=== PATIENT | male | born 1995 | race African-American/Black ===

== ENCOUNTER 2025-02-02 15:55 | Emergency (ER) | payer SELFPAY ==
[2025-02-02 16:09] VITALS: BP 125/76
[2025-02-02] MEDS: MOTRIN 400 MG PO (17:00)
--- NOTE | 2025-02-02 17:01 | ED.GENMED ---
History of Present Illness
General
Chief Complaint: Musculo-Skeletal Complaint
Source: patient
Exam Limitations: none
Time Seen by Provider: 02/02/25 16:17
Nursing documentation reviewed up to this point in time: agreed with
History of Present Illness
History of Present Illness:
Patient is a 29-year-old male presenting to the emergency department for evaluation of left hand injury. This occurred earlier his afternoon just prior to arrival. Patient states he works at a [employer] center and was assisting in
detaining one of the kids when his hand became jammed against the wall/door. Patient presents with swelling and pain to left hand. He denies any numbness/tingling in left hand/fingers. He denies any significant limitations in range of motion.
Patient does have mild abrasion to dorsal aspect of left hand at base of left 3rd/4th digits which he states is from scratching the door/wall. He denies any bite to the area.
Patient denies any other associated injuries. No head strike.
No other concerns today.
Past History
Past History
ED Past Medical History: None
Social History
Tobacco: Non-smoker
Personal: Single
Living: with roommate
Employment: Student
Review of Systems
Review of Systems
Allergies reviewed?: Yes
All Other Systems: ROS reviewed and negative except as documented in HPI and ROS
Phy Exam
Physical Exam
Physical Exam:
Vitals: Patient's vital signs are stable. Afebrile
General: Patient is well appearing, no acute distress
Skin: Very mild abrasion noted to dorsal aspect of left hand at MCP joints of 3rd/4th fingers. Warm and dry, no rashes or lesions
Head: Normocephalic, atraumatic
Throat: Protecting airway
Neck: Normal ROM, no cervical spine tenderness
Cardiac: Regular rate
Pulm: No apparent respiratory distress
Abdomen: Nondistended
Extremities: Mild edema and tenderness of left hand surrounding left second MCP and hypothenar area. No tenderness at left anatomical snuffbox. Patient has full range of motion in all digits of left hand against resistance. No bony tenderness of
left wrist with full range of motion. Very minor abrasion to left dorsal hand as described above. Palpable left radial pulse with normal capillary refill. Normal sensation of left hand.
Neuro: Grossly intact
Psychiatric: Normal affect.
Course
Orders/Labs/Results
Orders:
Orders
02/02/25 16:13
CR Hand - Left Min 3 Views Urgent
Reason For Exam: pain, injury
02/02/25 16:51
Ibuprofen [Motrin] 400 mg PO NOW STA
02/02/25 18:19
Matthew Wrap Right-Treatment ONCE
Vital Signs
Initial and Last Documented VS:
Initial Vital Signs
Temp Pulse Resp BP Pulse Ox
98.3 F 67 16 125/76 97
02/02/25 16:09 02/02/25 16:09 02/02/25 16:09 02/02/25 16:09 02/02/25 16:09
Last Documented Vital Signs
Temp Pulse Resp BP Pulse Ox
98.3 F 67 16 125/76 97
02/02/25 16:09 02/02/25 16:09 02/02/25 16:09 02/02/25 16:09 02/02/25 16:09
MDM/Problems Addressed
Differential Diagnosis Includes:
Not limited to: Metacarpal fracture, metacarpal dislocation, carpal fracture, hand contusion, hand sprain, etc.
MDM/Problems Addressed:
29-year-old male presenting with left hand injury occurring at work. No numbness/tingling in left hand or digits. No other injury sustained. Vital stable. Physical exam as above. Mild edema and tenderness of left hand near MCP joint of first
metacarpal and thenar region. Pretty good range of motion in left hand and full range of motion in all fingers against resistance. LUE neurovascularly intact. X-ray of left hand reviewed by me which shows no evidence of fracture. Suspect likely
contusion or sprain. Will apply Matthew wrap in ED. Advised rest, ice, compression, elevation. Tylenol/Motrin . Advised Ortho follow-up if symptoms persist/worsen. However�given this was her workplace injury�advise follow-up with Workmen's Comp.
physician for further evaluation/management and imaging as needed. Close return precautions discussed. Patient comfortable with plan.
Chronic conditions affecting care:
N/A
Acute Exacerbation and/or Progression of Chronic Illness:
N/A
*Radiology
Radiology exam reviewed: preliminary read by ED provider (Hand x-ray reviewed by me-no acute fracture)
*Pulse Oximetry
Patient hypoxic: no
*EKG
Interpreted by ED Provider?: NA
*Construction Person Interpretation
Rate: Construction Person- N/A
*Critical Care Note
Total Time (30-74mins, 75-104mins- exclusive of procedures): Not Applicable
ED Attending Note
-
Portions of this chart may have been created with voice recognition software.� Occasional wrong word or��sound alike� substitutions may have occurred due to the inherent limitations of voice recognition software.
Discharge Plan
Departure
Patient Disposition: Home (Routine Discharge)
Date of Disposition: 02/02/25
Time of Disposition: 18:19
Patient with high blood pressure during this ER visit?: No
Condition: Good
Covid-19: Not Applicable
Discharge Problem:
Injury of hand, left
Instructions: Contusion
Referrals:
Reuben Calero MD [Active] - As needed
UNKNOWN - PT DOES,NOT KNOW [Family Provider] -
Activity Restrictions/Additional Instructions:
RETURN TO THE EMERGENCY DEPARTMENT WITH ANY SEVERE PAIN IN RIGHT HAND, SIGNIFICANT WORSENING IN SWELLING,, NUMBNESS/TINGLING IN RIGHT HAND, OR ANY OTHER CONCERNS
- As discussed�independent review of your x-ray�there is no evidence of fracture. If the radiologist sees any underlying fracture�we will contact you. It is possibly suffered a sprain or contusion of the right hand.
- Continue to ice/elevate right hand over the next 2 days. Take Tylenol/Motrin as needed for pain. You can apply Matthew wrap for support and compression.
- Follow-up with Workmen's Comp. physician for further evaluation/management. If symptoms persist/worsen you may need repeat imaging and orthopedic follow-up.
Monitor your symptoms closely and return to the emergency department with any acute symptoms or any other concerns
Interventions
Interventions:
*Nursing Disposition Last Done: 02/02/25 18:33
ED-Musculoskeletal Assessment Last Done: 02/02/25 16:34
Discharge Date and Time
Discharge Date/Time: 02/02/25 18:33
Print Language: ROMANIAN
== END 2025-02-02 18:33 | disposition home or self-care (01) ==
LOC: EMR 15:55
PROVIDERS: EMERGENCY PHYSICIAN Emergency Medicine
DX: S60.512A Abrasion of left hand, initial encounter (principal); W23.0XXA Caught, crushed, jammed, or pinched between moving objects, initial encounter
CPT/HCPCS: 99283; 73130